=== PATIENT | female | born 1985 | race Caucasian/White ===

== ENCOUNTER → 2018-05-11 | Outpatient (CLI) | payer OTHER | END | disposition home or self-care (01) | LOC: LABWHC1 08:27 | PROVIDERS: ATTEND Physician Assistant | DX: R90.89 Other abnormal findings on diagnostic imaging of central nervous system (principal) | CPT/HCPCS: 36415; 82040; 82042; 82784; 83916 ==

== ENCOUNTER 2019-02-22 10:01 | Day surgery (SDC) | payer OTHER ==
[2019-02-17 11:46] VITALS: BMI 31.7
[~2019-02-22 10:01] MED LIST: SODIUM CHLORIDE 0.9% 1,000 ML IV SCH
[2019-02-22 10:30] VITALS: PULSE 77; RESP 20; TEMP 98.4
[2019-02-22] MEDS ORDERED: IV FLUID CONTINUATION 400 ML IV ONE (11:10)
[2019-02-22 12:55] VITALS: BP 132/82
--- NOTE | 2019-02-22 20:08 | P.PCN ---
Preoperative Diagnosis: Diagnosis Recurrent presyncope and dizziness Twelve-lead ECG shows sinus mechanism normal NE narrow QRS normal ST segments Tilt table test per protocol Baseline heart rate 80 beats a minute Baseline blood pressure 130/66 milligrams of mercury Patient was tilted upright at night was 70 per protocol heart rate and blood pressure remained stable throughout procedure. She felt lightheaded on several occasions but there was no change in heart rate and blood pressure during these episodes Impression Normal telemetry ECG No evidence for neurocardiogenic syncope or dysautonomia on tilt table testing Normal heart rate and blood pressure response to upright tilting
== END 2019-02-22 12:15 | disposition home or self-care (01) ==
LOC: CATHEP 10:01
PROVIDERS: ATTEND Internal Medicine Clinical Cardiac Electrophysiology
DX: R55 Syncope and collapse (principal)
CPT/HCPCS: 81025; 93660